=== PATIENT | female | born 1940 | race Caucasian/White ===

== ENCOUNTER → 2017-12-27 07:55 | Outpatient (CLI) | payer MEDICARE, OTHER, SELFPAY ==
[2017-12-27 10:49] LABS: Color, Urine Yellow (Yellow); Glucose, Dipstick Normal (Normal); Ketone-Dipstick Negative (Negative); Leukocyte Esterase-Dipstick 25 /ul (Negative); Nitrite-Dipstick Negative (Negative); Occult Blood-Urine 10 /ul (Negative); Protein-Dipstick Negative (Negative); Specific Gravity, Urine 1.015 (1.002-1.030); Urine Bilirubin Dipstick Negative (Negative); Urine Clarity Clear (Clear); Urine Urobilinogen Normal (Normal)
[2017-12-27 11:11] LABS: Protein, Urine (Random) 8.9 mg/dL (<11.9); Protein:Creat Ratio 157 mg/g CRE (0-200)
[2017-12-28 11:14] LABS: Complement C3 137 mg/dL (82-167)
[2017-12-28 14:08] LABS: Anti-Centromere B Ab <0.2 AI (0.0-0.9); Anti-Jo <0.2 AI (0.0-0.9); Anti-Scleroderma-70 AB <0.2 AI (0.0-0.9); RNP Ab <0.2 AI (0.0-0.9); SJOGREN'S Anti-SS-A test < 0.2 AI (0.0-0.9); SJOGREN'S Anti-SS-B test < 0.2 AI (0.0-0.9); Smith Ab <0.2 AI (0.0-0.9)
[2017-12-29 10:32] LABS: ANTINUCLEAR ANTIBODIES DIRECT Negative (Negative); Anti-dsDNA Ab <1 IU/mL (0-9)
== END ==
PROVIDERS: Family Provider Internal Medicine Geriatric Medicine; PCP Internal Medicine Geriatric Medicine; Visit Provider Internal Medicine Rheumatology
DX: M06.4 Inflammatory polyarthropathy (principal); M79.7 Fibromyalgia; M35.00 Sjogren syndrome, unspecified; M15.9 Polyosteoarthritis, unspecified; M48.062 Spinal stenosis, lumbar region with neurogenic claudication
CPT/HCPCS: 36415; 81002; 82570; 84156; 86038; 86160; 86225; 86235

== ENCOUNTER → 2018-02-08 08:51 | Outpatient (CLI) | payer MEDICARE, OTHER, SELFPAY ==
--- NOTE | 2018-02-08 11:57 | NEURO ---
NCS and/or EMG Patient Report Ordering Doctor: Mohamud Braga DATE OF SERVICE: 02/08/18 Rama Abarca is a 77-year-old female who presents for electrodiagnostic testing of the lower limbs. She has chief complaint of numbness and tingling in the left leg. She has intermittent symptoms in the right leg. She reports having had a back surgery in September 2017. Electrodiagnostic findings: on nerve conduction study, peroneal motor nerve demonstrates normal distal latency, amplitude and conduction velocity bilaterally. Normal tibial motor response bilaterally. H reflexes are slightly prolonged bilaterally. Prolonged left peroneal F wave. Borderline prolonged sural latency bilaterally. On needle EMG, all muscles tested in the lower limbs show no evidence of denervation with normal motor unit action potentials. Electrodiagnostic impression: This is an essentially normal study in the lower limbs. There is no electrodiagnostic evidence for peripheral polyneuropathy. There is no electrodiagnostic evidence for lumbosacral radiculopathy. The borderline slowing of the sural nerve is likely not of major clinical consequence. If there are any further questions, please not hesitate to contact me
== END ==
PROVIDERS: Family Provider Internal Medicine Geriatric Medicine; PCP Internal Medicine Geriatric Medicine; Visit Provider Orthopaedic Surgery Orthopaedic Surgery of the Spine
DX: M47.26 Other spondylosis with radiculopathy, lumbar region (principal); M51.36 Other intervertebral disc degeneration, lumbar region; Z98.890 Other specified postprocedural states
CPT/HCPCS: 95886; 95912

== ENCOUNTER → 2018-03-16 11:51 | Outpatient (CLI) | payer MEDICARE, OTHER, SELFPAY ==
[2018-03-16 13:48] LABS: Absolute Lymphocyte Count 1.67 X10^3/ul (0.83-4.51); Absolute Neutrophil Count 3.6 X10^3/uL (2.0-7.7); Basophil# 0.03 X10^3/uL; Basophil% 0.5 % (0-1); Eosinophil# 0.22 X10^3/uL; Eosinophils% 3.5 % (0-5); Hematocrit 39.7 % (37-47); Lymphocyte # 1.67 X10^3/ul (4.0); Lymphocyte % 26.6 % (19-41); Mean Corp Hgb Conc 32.7 g/gl (32-36); Mean Corpuscular Volume 91.7 fL (81-99); Mean Platelet Vol. 10.1 fl (6.2-12.0); Monocyte# 0.72 X10^3/uL; Monocyte% 11.5 % (0-10); Neutrophil # 3.64 X10^3/uL (2.7-7.7); Neutrophil % 57.9 % (47-70); POSITIVE COUNT NO; POSITIVE DIFFERENTIAL NO; POSITIVE MORPHOLOGY NO; Platelet Count 315 K/mm3 (150-450); RBC Distribution Width CV 14.6 % (11.6-14.6); RBC Distribution Width SD 47.8 fl (35.1-43.9); Red Blood Count 4.33 M/mm3 (4.2-5.4); White Blood Count 6.3 K/mm3 (4.4-11.0)
[2018-03-16 14:02] LABS: ALB/GLOB Ratio 1.2 RATIO (0.9-2.4); AST(SGOT) 28 U/L (15-37); Alanine Aminotransfer ALT/SGPT 43 U/L (13-56); Albumin, Serum 4.1 g/dL (3.2-5.0); Alkaline Phosphatase 110 U/L (45-117); Anion Gap 8 (5-15); BUN 18 mg/dL (7-18); BUN/Creat Ratio 20.8 RATIO (10-20); Calcium,Total 9.1 mg/dL (8.5-10.1); Chloride 103 mmol/L (98-107); Creatinine, Serum 0.86 mg/dL (0.55-1.02); EST Glomerular Filtration Rate 68 mL/min (>60); Est Glom Filt Rate - Afr Amer 82 mL/min (>60); Globulin 3.3 g/dL (2.2-4.2); Glucose 88 mg/dL (74-106); Potassium 4.2 mmol/L (3.5-5.1); Protein, Total 7.4 g/dL (6.4-8.2); Sodium Level 139 mmol/L (136-145)
== END ==
PROVIDERS: Family Provider Internal Medicine Geriatric Medicine; PCP Internal Medicine Geriatric Medicine; Visit Provider Internal Medicine Rheumatology
DX: M06.4 Inflammatory polyarthropathy (principal); R76.8 Other specified abnormal immunological findings in serum; M79.7 Fibromyalgia; M35.00 Sjogren syndrome, unspecified; M15.9 Polyosteoarthritis, unspecified; M48.062 Spinal stenosis, lumbar region with neurogenic claudication
CPT/HCPCS: 36415; 80053; 85025

== ENCOUNTER → 2018-05-30 09:20 | Outpatient (CLI) | payer MEDICARE, OTHER, SELFPAY ==
[2018-05-30 12:11] LABS: Absolute Lymphocyte Count 1.09 X10^3/ul (0.83-4.51); Basophil# 0.02 X10^3/uL; Basophil% 0.4 % (0-1); Eosinophil# 0.28 X10^3/uL; Eosinophils% 5.8 % (0-5); Hematocrit 39.5 % (37-47); Hemoglobin 12.3 g/dl (12.0-15.0); Lymphocyte # 1.09 X10^3/ul (4.0); Lymphocyte % 22.6 % (19-41); Mean Corp Hgb Conc 31.1 g/gl (32-36); Mean Corpuscular Hgb 29.3 pg (27.0-32.0); Mean Platelet Vol. 9.9 fl (6.2-12.0); Monocyte# 0.44 X10^3/uL; Monocyte% 9.1 % (0-10); Neutrophil # 2.99 X10^3/uL (2.7-7.7); Neutrophil % 61.9 % (47-70); Platelet Count 315 K/mm3 (150-450); RBC Distribution Width CV 14.8 % (11.6-14.6); RBC Distribution Width SD 50.2 fl (35.1-43.9); White Blood Count 4.8 K/mm3 (4.4-11.0)
[2018-05-30 12:23] LABS: POSITIVE COUNT NO; POSITIVE DIFFERENTIAL NO; POSITIVE MORPHOLOGY NO
[2018-05-30 12:26] LABS: ALB/GLOB Ratio 1.3 RATIO (0.9-2.4); AST(SGOT) 20 U/L (15-37); Alanine Aminotransfer ALT/SGPT 33 U/L (13-56); Albumin, Serum 3.8 g/dL (3.2-5.0); Alkaline Phosphatase 102 U/L (45-117); Anion Gap 10 (5-15); BUN 22 mg/dL (7-18); BUN/Creat Ratio 22.7 RATIO (10-20); Calcium,Total 9.1 mg/dL (8.5-10.1); Chloride 105 mmol/L (98-107); Creatinine, Serum 0.97 mg/dL (0.55-1.02); EST Glomerular Filtration Rate 59 mL/min (>60); Est Glom Filt Rate - Afr Amer 72 mL/min (>60); Glucose 110 mg/dL (74-106); Potassium 4.2 mmol/L (3.5-5.1); Protein, Total 6.8 g/dL (6.4-8.2); Sodium Level 142 mmol/L (136-145)
== END ==
PROVIDERS: Family Provider Internal Medicine Geriatric Medicine; PCP Internal Medicine Geriatric Medicine; Visit Provider Internal Medicine Rheumatology
DX: M06.4 Inflammatory polyarthropathy (principal); R76.8 Other specified abnormal immunological findings in serum; M79.7 Fibromyalgia; M25.00 Hemarthrosis, unspecified joint; M15.9 Polyosteoarthritis, unspecified; M48.062 Spinal stenosis, lumbar region with neurogenic claudication; G25.81 Restless legs syndrome; K21.9 Gastro-esophageal reflux disease without esophagitis; F32.89 Other specified depressive episodes
CPT/HCPCS: 36415; 80053; 85025

== ENCOUNTER 2019-06-15 07:41 | Day surgery (SDC) | payer MEDICARE, OTHER, SELFPAY ==
[2019-06-15] VITALS (7 sets, daily range): BP systolic 99–151; BP diastolic 60–80; PULSE 54–68; RESP 16–18; TEMP 36.3–36.4; O2SAT 97–100; BMI 31.4
[2019-06-15] MEDS: Lactated Ringers 1,000 ML 100 ML IV (08:24)
--- NOTE | 2019-06-15 09:00 | RAD_ITS ---
STUDY: X-RAY - LUMBAR SPINE REASON FOR EXAM: Female, 78 years old. Spinal stimulator placement TECHNIQUE: 4 view(s) of the lumbar spine were obtained. COMPARISON: None FINDINGS: 531 seconds of fluoroscopy of the thoracic spine was utilized upper ureter and 3-D images are submitted for interpretation. RAD/Lumbar Spine 2 or 3 Views IMPRESSION: Fluoroscopy during surgery. Electronically Signed: Eugenio Holland MD at 14:07 EDT Tel , Service support ,
[2019-06-15] MEDS: Cefazolin 2 GM in 0.9% Normal Saline 100 ML IV (09:20)
[2019-06-15] MEDS: Bupivacaine Mpf 0.5% 30 ML VIAL (09:46)
--- NOTE | 2019-06-15 11:41 | PCM.OPRPT ---
Problem List (1) Failed back syndrome of lumbar spine Status: Acute (2) Failed back syndrome of lumbar spine Status: Acute (3) Postlaminectomy syndrome, not elsewhere classified Status: Acute (4) Postlaminectomy syndrome, not elsewhere classified Status: Acute (5) Low back pain Status: Acute (6) Low back pain Status: Acute (7) Other intervertebral disc degeneration, lumbar region Status: Acute (8) Other intervertebral disc degeneration, lumbar region Status: Acute Report of Operation Date of Procedure: 06/15/19 Pre-Operative Diagnosis: Lumbar postlaminectomy syndrome, lower back pain, degenerative disc disease, lumbar radiculopathy, 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 IPG placement/Abbot /[place], rechargeable battery in the left gluteal region. Permanent implant of 2x 8 contact lead Abbbot system in the posterior epidural space at the T8-T9. Position fluoroscopy 1 hour. Complex programming 1 hour Description of Surgical Findings:: After informed consent about the procedure, review prior care for the presenting complaint of lower back pain and lower extremity radicular pain. Patient had successful spinal cord stimulator trial and decision was made to proceed with a permanent implant based on patient response to the trial period. Patient taken to OR [6], placed to the prone position pressure points were padded appropriate monitoring per anesthesia team were applied patient was safe to administer anesthesia per anesthesia team. Anesthesia provided is general anesthesia/monitored anesthesia care with no intubation. After appropriate fluoroscopy guidance and marking of the targeted area to the entry at the level of L2-3, appropriate draping was applied, sterile preparation using DuraPrep to both incision in the mid lumbar spinal area at the level of the L2-3, and of the right gluteal region for the IPG placement. Incision started , used 25-gauge needle for skin infiltration with local anesthesia using preservative-free lidocaine 0.5% mixture was Marcaine 0.25% was 1-200,000 epinephrine. Using #10 blade, made 2.5 inch longer to the incision, longitudinal, at the level of L2-L3 at the midline using #10 blade. Incision was completed using cauterization at level 30?, coagulation at levels 30? to ensure no bleeding spots. After proper exploration of the area, used a 14-gauge curved tip Touhy needle to access at 45? angle to the posterior epidural space at the entry point L1 to at midline confirmed with AP and lateral fluoroscopy and [id number] technique using preservative-free normal saline and glass syringes. I have placed to needles at the L1-2 posterior epidural space and noted aspiration was negative for CSF and blood. I passed TWO # 8 contacts leads, [Fitnet System], they both passed parralel to each other through the 2 needles in the posterior epidural space confirmed with lateral fluoroscopy and AP fluoroscopy at the midline until placed smoothly at the posterior epidural space with the tip of the lead at the top of T8 vertebrae. Using [Boxfish] embedded software programmer I have placed the embedded software programmer on the leads insured good impedance on the reader and patient was awakened throughout the placement of the wires and placement of the leads, given patient 45-60 minutes complex programming for the different painful target areas until the patient verified appropriate coverage over the painful areas in the lower back and both legs using contacts in the middle of both leads. After patient has expressed satisfaction with the placement patient was put back to anesthesia for sedation. I disconnected the embedded software programmer from the leads followed by pulling the 2 needles and the guidewire from the leads under live fluoroscopy and kept placement of the 2 leads at the posterior epidural space at the T8 and T9 as initially placed. At that time we used two anchors to anchor the [address] confirmed with fluoroscopy to ensure the leads stayed in place at each step followed by using 2 silk sutures to anchor the 2 anchors was then leads into the posterior longitudinal ligaments. IPG pocket was performed on the [ right] gluteal region below the belt line after identification was fluoroscopy, 2.5 inch transverse incision was made after local infiltration with lidocaine preservative-free 0.5% and Marcaine quarter percent infiltrated with 10 cc and using incision by #10 blade made the pocket to accommodate the rechargeable battery at place. I used tunneling device between the IPG pocket and the midline lumbar incision to tunnel the 2 leads to the IPG followed by anchoring the 2 leads into the battery and using hex wrench to tighten the placement, this was confirmed with another complex programming and impedance was completed to be appropriate at all contacts. After ensuring good placement of the system, I have used to silk suture to tighten the battery in place. We have used sterile irrigation to irrigate both pockets, followed by closure with the deep layer with 2-0 Vicryl and closure of the superficial layer with subcuticular closure with Vicryl sutures. We applied dressing using Dermabond, Steri-Strips at both insert incisions followed by covering with transparent draping. Given instruction for postoperative follow-up, also Keflex 500 g every 6 hours for 7 days, also given prescription for Percocet for postoperative pain I have also discussed this patient to follow-up with orthopedic as soon as she could for the right hip issue, also be ordering postprocedure hip x-ray to ensure similar position of prior procedure and to follow-up with orthopedic Patient tolerated the procedure well taken to recovery and prepared to be discharged home once meets anesthesia criteria, patient was given the postoperative instruction and the follow-up procedure including antibiotic coverage instructions. Type of Anesthesia:: MAC Anesthesiologist: Bryson Garcia Special Medications: Bupivacaine and lidocaine local anesthetics. Antibiotic received per anesthesia Specimen's removed: None Estimated Blood Loss (mL): 20 cc Description of Procedure: See above Grafts/Implants Used: Rechargeable battery IPG in the left gluteal region, to permanently - Complications None - Admit VTE Documentation VTE Mechan Device Prophylaxis: Knee High GAGE Hose VTE Pharm Prophylaxis ordered?: Yes
--- NOTE | 2019-06-15 11:53 | PCM.DC ---
- Discharge Diagnoses Current Active Problems: Current Active and Chronic Problems (Last Updated 07/07/18 @ 08:08 by Maty Hwang) Failed back syndrome of lumbar spine (Acute) Failed back syndrome of lumbar spine (Acute) Postlaminectomy syndrome, not elsewhere classified (Acute) Postlaminectomy syndrome, not elsewhere classified (Acute) Low back pain (Acute) Low back pain (Acute) Other intervertebral disc degeneration, lumbar region (Acute) Other intervertebral disc degeneration, lumbar region (Acute) Reason(s) for Visit for Discharge Instructions: Spinal cord stim later implant You will use the following diet at home:: No restrictions Your food should be the consistency of: Regular Discharge Activity: Use Walker May shower in (days): 5 Weight Bearing Status: Partial weight bearing Keep extremity elevated above heart level: Operative Extremity Call your doctor if your incision/area has: Continuous Slow Oozing, Sudden Increased Bleeding, Increased Pain/ Swelling, Increased Redness, Foul Smelling Discharge, Swelling at the incision site Call your doctor if you observe: Fever of 101 or Higher, Coldness, Increased Pain, Numbness or Tingling, Change in Color, Inability to urinate, Inability to have a bowel movement, Shortness of breath, Dizziness, Swelling in the ankles, Increased palpitations (irregular heartbeat), Calf discomfort, Uncontrolled pain Suture Line Care: Avoid Pulling/Pushing, Avoid Pinching/Bending Remove Dressing in (days):: 5 Cleanse incision/area with: Soap & Water Allergies/Adverse Reactions: Allergies morphine Allergy (Verified 06/15/19 07:57) Unknown hallucinations pregabalin [From Lyrica] Allergy (Verified 06/15/19 07:57) Hives Sulfa (Sulfonamide Antibiotics) Allergy (Verified 06/15/19 07:57) Unknown fatigue antidepressants Adverse Reaction (Uncoded 06/15/19 07:57) Other sleepy Medications to take at Discharge aspirin 81 mg chewable tablet 81 mg PO DAILY 07/07/18 atorvastatin 20 mg tablet 20 mg PO QHS 90 Days #90 tab 07/07/18 calcium carbonate 600 mg calcium (1,500 mg) tablet 1,000 mg PO BID tab 07/07/18 cholecalciferol (vitamin D3) 3,000 unit tablet 2,000 unit PO DAILY 07/07/18 cyanocobalamin (vit B-12) 1,000 mcg/mL oral drops 500 mcg PO DAILY 07/07/18 donepezil 10 mg tablet 10 mg PO QHS 90 Days #90 tab 07/07/18 escitalopram 10 mg tablet 5 mg PO QHS 90 Days #135 tab 07/07/18 folic acid 1 mg tablet 800 mcg PO BID 90 Days #180 tab 07/07/18 gabapentin 600 mg tablet 600 mg PO BID 90 Days #270 tab 07/07/18 lutein 6 mg capsule 6 mg PO DAILY 07/07/18 methotrexate sodium 2.5 mg tablet 20 mg PO QWEEK 28 Days #28 tab 07/07/18 multivitamin capsule 1 cap PO DAILY 07/07/18 omeprazole 40 mg capsule,delayed release 40 mg PO DAILY 90 Days #90 cap 07/07/18 pramipexole 0.5 mg tablet 1 tab PO QHS 90 Days #90 tab 07/07/18 vitamin E 200 unit capsule 1,000 unit PO BID 07/07/18 Isosorbide Mononitrate [Imdur] 30 mg PO DAILY 06/08/19 Losartan Potassium [Cozaar] 100 mg PO DAILY 06/08/19 Magnesium Oxide [Magnesium] 1,250 mg PO DAILY 06/08/19 Meloxicam 7.5 mg PO BID 06/08/19 Metoprolol Succinate 25 mg PO DAILY 06/08/19 Mirtazapine 4 mg PO QHS 06/08/19 [place]-3 Fatty Acids [[place]-3] 1,000 mg PO DAILY 06/08/19 Thiamine HCl [Vitamin B-1] 100 mg PO DAILY 06/08/19 Tizanidine HCl [Zanaflex] 4 mg PO QHS 06/08/19 traMADol [Ultram (G)] 50 mg PO Q4H PRN PRN 06/08/19 Primary Care Physician: Beau Franks MD [Primary Care Provider] - Please follow up with your Primary Care Physician in: Instructed patient also to keep calling for the orthopedic/[facility] , Test Results: Test results from this visit will be discussed in further detail at your follow-up appointment, if applicable. Please Follow Up With: Sarah Johns MD
--- NOTE | 2019-06-15 12:28 | NURSING ---
SPINAL CORD STIMULATOR REP AT BEDSIDE, DAUGHTER ALSO AT BEDSIDE TO ASSIST IN RECEIVING INSTRUCTIONS.
--- NOTE | 2019-06-15 13:50 | RAD_ITS ---
STUDY: X-RAY - PELVIS AND RIGHT HIP REASON FOR EXAM: Female, 78 years old. Hip pain TECHNIQUE: 3 views of the pelvis and hip. COMPARISON: None. FINDINGS: There is a non-specific bowel gas pattern. Normal visualized soft tissue structures. Normal bilateral iliac wings, sacroiliac joints and visualized sacrum. Normal bilateral superior and inferior pubic rami. Normal pubic symphysis. Normal bilateral ischial tuberosities. Irregular concavity of the superior aspect of the femoral head worrisome for collapse possibly from avascular necrosis. Correlation with MRI is recommended. Normal acetabulum. Normal hip joint. 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 Electronically Signed: Eugenio Holland MD at 14:08 EDT Tel , Service support ,
== END 2019-06-15 13:36 | disposition home or self-care (01) ==
LOC: SDC 07:43 → AC 07:45
PROVIDERS: Family Provider Family Medicine; PCP Family Medicine; Referring Provider Anesthesiology; Visit Provider Anesthesiology
PROC: (CPT 63685; principal; 2019-06-15 08:45)
DX: M51.16 Intervertebral disc disorders with radiculopathy, lumbar region (principal); M96.1 Postlaminectomy syndrome, not elsewhere classified; M48.062 Spinal stenosis, lumbar region with neurogenic claudication; I10 Essential (primary) hypertension; M19.90 Unspecified osteoarthritis, unspecified site; K21.9 Gastro-esophageal reflux disease without esophagitis; E78.00 Pure hypercholesterolemia, unspecified; F32.9 Major depressive disorder, single episode, unspecified; I25.10 Atherosclerotic heart disease of native coronary artery without angina pectoris; G25.81 Restless legs syndrome; Z95.5 Presence of coronary angioplasty implant and graft; Z87.891 Personal history of nicotine dependence; Z79.82 Long term (current) use of aspirin; Z79.891 Long term (current) use of opiate analgesic; Z79.899 Other long term (current) drug therapy
CPT/HCPCS: 00300; 63685; 95972; 72100; 73502; 76000; C1778; J7120; J3490

== ENCOUNTER → 2020-01-18 | Outpatient (CLI) | payer MEDICARE, OTHER, SELFPAY ==
[2019-06-15 08:06] VITALS: BMI 31.4
--- NOTE | 2020-01-18 13:57 | RAD_ITS ---
STUDY: X-RAY - CERVICAL SPINE REASON FOR EXAM: Female, 79 years old. Cervicalgia -- neck pain, bilateral arm pain TECHNIQUE: 6 view(s) of the cervical spine were obtained including oblique views. COMPARISON: None FINDINGS: Normal anterior atlantoaxial articulation. Normal odontoid process. There is straightening of the normal cervical lordosis. There is multi-level endplate spondylosis. Normal visualized intervertebral neuroforamina. The soft tissue structures are unremarkable. RAD/Cerv Spine 4 or 5 Views IMPRESSION: Multilevel spondylosis and disc space narrowing. Electronically Signed: Ronald Guerrero, at 15:06 EDT , Service support ,
== END | disposition home or self-care (01) ==
LOC: RAD 13:57
PROVIDERS: PCP Family Medicine; Referring Provider Anesthesiology; Visit Provider Anesthesiology
DX: M54.2 Cervicalgia (principal)
CPT/HCPCS: 72050

== ENCOUNTER 2020-04-11 12:00 | Day surgery (SDC) | payer MEDICARE, OTHER, SELFPAY ==
[2019-06-15 08:06] VITALS: BMI 31.4
[2020-04-11 12:36] VITALS: BP 160/64; PULSE 55; RESP 15; TEMP 36.2; O2SAT 98; BMI 28.3
[2020-04-11] MEDS: Lactated Ringers 1,000 ML 100 ML IV (12:59)
--- NOTE | 2020-04-11 13:30 | RAD_ITS ---
STUDY: X-RAY - LUMBAR SPINE REASON FOR EXAM: Female, 79 years old. spinal cord stimulator revision in OR, pain -- dose: 80.26 mGy; 231.3 seconds of pulse fluoro; 2 spots and 1 dose summary TECHNIQUE: 2 view(s) of the lumbar spine were obtained. COMPARISON: None FINDINGS: 2 fluoroscopic images demonstrate 2 thoracic spine stimulators. The exact levels of the stimulator placements cannot be determined on the provided fluorographs. RAD/Lumbar Spine 2 or 3 Views IMPRESSION: As above. Electronically Signed: Salvatore Salazar MD at 19:55 EDT Tel , Service support ,
[2020-04-11] MEDS: Cefazolin 2 GM in 0.9% Normal Saline 100 ML IV (14:12)
[2020-04-11] MEDS: Bupivacaine Mpf 0.5% 30 ML VIAL (15:30)
[2020-04-11] MEDS: 0.9% Normal Saline (Pres. free 10 ML Vial (15:30)
--- NOTE | 2020-04-11 15:55 | DCINST_ITS ---
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 Excessive bending. No twisting. Keep incision dry. Keep it covered. Take antibiotics 7 days, Keflex 500 mg every 6 hours. Apply icing on the incision if painful. Take pain medication as needed for pain Call your doctor if your incision/area has: Continuous Slow Oozing, Sudden Increased Bleeding, Increased Pain/ Swelling, Increased Redness, Foul Smelling Discharge, Swelling at the incision site Call your doctor if you observe: Fever of 101 or Higher, Coldness, Increased Pain, Numbness or Tingling, Change in Color, Inability to have a bowel movement, Shortness of breath, Uncontrolled pain Change Dressing in (Days):: 5 Remove Dressing in (days):: 5 Cleanse incision/area with: Soap & Water, Keep Dressing Clean & Dry Allergies/Adverse Reactions: Allergies morphine Allergy (Verified 04/11/20 12:26) Unknown hallucinations pregabalin [From Lyrica] Allergy (Verified 04/11/20 12:26) Hives Sulfa (Sulfonamide Antibiotics) Allergy (Verified 04/11/20 12:26) Unknown fatigue antidepressants Adverse Reaction (Uncoded 04/11/20 12:26) Other sleepy Medications to take at Discharge aspirin 81 mg chewable tablet 81 mg PO DAILY 07/07/18 atorvastatin 20 mg tablet 20 mg PO QHS 90 Days #90 tab 07/07/18 calcium carbonate 600 mg calcium (1,500 mg) tablet 1,000 mg PO BID tab 07/07/18 cholecalciferol (vitamin D3) 75 mcg (3,000 unit) tablet 2,000 unit PO DAILY 07/07/18 donepezil 10 mg tablet 10 mg PO QHS 90 Days #90 tab 07/07/18 escitalopram oxalate 10 mg tablet 10 mg PO QHS 90 Days #135 tab 07/07/18 folic acid 1 mg tablet 800 mcg PO BID 90 Days #180 tab 07/07/18 gabapentin 600 mg tablet 700 mg PO BID 90 Days #270 tab 07/07/18 lutein 6 mg capsule 6 mg PO DAILY 07/07/18 methotrexate sodium 2.5 mg tablet 8 tab PO QWEEK 28 Days #28 tab 07/07/18 multivitamin 1 cap PO DAILY 07/07/18 omeprazole 40 mg capsule,delayed release 40 mg PO DAILY 90 Days #90 cap 07/07/18 pramipexole 0.5 mg tablet 1 tab PO QHS 90 Days #90 tab 07/07/18 vitamin E 200 unit capsule 1,000 unit PO BID 07/07/18 Isosorbide Mononitrate [Imdur] 30 mg PO DAILY 06/08/19 Losartan Potassium [Cozaar] 100 mg PO DAILY 06/08/19 Magnesium Oxide [Magnesium] 1,250 mg PO DAILY 06/08/19 Metoprolol Succinate 25 mg PO DAILY 06/08/19 [place]-3 Fatty Acids [[place]-3] 1,000 mg PO DAILY 06/08/19 Tizanidine HCl [Zanaflex] 4 mg PO QHS PRN 06/08/19 traMADol [Ultram (G)] 100 mg PO BID 06/08/19 Cyanocobalamin (Vitamin B-12) [Vitamin B-12] 1,000 mcg PO DAILY 04/03/20 Naproxen Sodium [Naproxen Sodium Cr] 500 mg PO BID 04/03/20 Primary Care Physician: Beau Franks MD [Primary Care Provider] - Test Results: Test results from this visit will be discussed in further detail at your follow- up appointment, if applicable. Please Follow Up With: Sarah Johns MD
--- NOTE | 2020-04-11 15:58 | OP.PCM_ITS ---
Problem List (1) Failed back syndrome of lumbar spine Status: Acute (2) Failed back syndrome of lumbar spine Status: Acute (3) Postlaminectomy syndrome, not elsewhere classified Status: Acute (4) Postlaminectomy syndrome, not elsewhere classified Status: Acute (5) Low back pain Status: Acute (6) Low back pain Status: Acute (7) Other intervertebral disc degeneration, lumbar region Status: Acute (8) Other intervertebral disc degeneration, lumbar region Status: Acute Report of Operation Date of Procedure: 04/11/20 Pre-Operative Diagnosis: Lumbar postlaminectomy syndrome. Failed back syndrome. Spinal cord stimulator system failure/lead failure Post-Operative Diagnosis: Same Surgery/Procedure Performed:: 1. Spinal cord stimulator revision. 2. additional fluoroscopy 1 hour. 3. Complex programming intraoperatively 1 hour. 4. Exploration of spine with meter battery and spinal cord stimulator leads. 5. Impedance to check intraoperative. 6. Revision of the left-sided lead, removal and implant new leads in place and connecting to the the old battery. 7. Right-sided lead impedance are checked, left in place as is normally working Description of Surgical Findings:: [facility] spinal cord stimulator system in place was used during the procedure After informed consent about the procedure, review prior care for the presenting complaint of lower back pain and lower extremity radicular pain. Patient had successful spinal cord stimulator permanent implant which was working. Patient had hip surgery after that surgery she has returned to the office with lead failure in the system is not working not able to provide her with a coverage. After multiple successful check, we found out that 1 of the leads has high impedance not working, which is a left-sided lead. After informed consent, spoke with the medical regimen which was not covering, spinal cord stimulator revision decided to take place and be the best option to proceed. Patient taken to OR [1], placed to the prone position pressure points were padded appropriate monitoring per anesthesia team were applied patient was safe to administer anesthesia per anesthesia team. Anesthesia provided is general anesthesia/monitored anesthesia care with no intubation. After appropriate fluoroscopy guidance and marking of the targeted area to the entry at the level of L2-3, appropriate draping was applied, sterile preparation using DuraPrep to both incision in the mid lumbar spinal area at the level of the L2-3, and of the right gluteal region for the IPG placement. Incision started , used 25-gauge needle for skin infiltration with local anesthesia using preservative-free lidocaine 0.5% mixture was Marcaine 0.25% was 1-200,000 epinephrine. Using #10 blade, made 2.5 inch longer to the incision over the IPG site. We had access to the battery, first explored over the old battery, impedance check was both leads identified that the left-sided lead has high impedance however the right-sided lead was normal. Cross impedance was also done to try to rule out the battery, step check noted that the battery is intact, the right- sided lead is intact, but the left lead is failure. We have access to the level of L2-L3 at the midline using #10 blade. Incision was completed using cauterization at level 25, coagulation at levels 25 to ensure no bleeding spots. After proper exploration of the area, identified the field lead on the left side, pulled out carefully by left the right side in place. Used a 14-gauge curved tip Touhy needle to access at 45? angle to the posterior epidural space at the entry point L1 to at midline confirmed with AP and lateral fluoroscopy and [id number] technique using preservative-free normal saline and glass syringes. I have placed to needles at the L1-2 posterior epidural space and noted aspiration was negative for CSF and blood. I passed 1 sided 8 contacts lead, [facility] lead system, placed the left-sided lead and passed to the old position, impedance check and complex programming showed lower coverage however we have to push the lead up to the level higher to the top of T7. However the right-sided lead left in place at the top of T8. Patient was awakened, complex programming patient has no rib pain, no abdominal pain. It was given patient 45 minutes complex programming for the different painful target areas until the patient verified appropriate coverage over the painful areas in the lower back and both legs using contacts in the middle of both leads. After patient has expressed satisfaction with the placement patient was put back to anesthesia for sedation. We have checked both leads, attached the battery and both were working in fine condition. I disconnected the programmer developer from the leads followed by pulling the 2 needles and the guidewire from the leads under live fluoroscopy and kept placement of the 2 leads at the posterior epidural space at the T8 and T9 as initially placed. At that time we used two anchors to anchor the [address] confirmed with fluoroscopy to ensure the leads stayed in place at each step followed by using 2 silk sutures to anchor the 2 anchors was then leads into the posterior longitudinal ligaments. IPG pocket was performed on the left gluteal region below the belt line after identification was fluoroscopy, 2.5 inch transverse incision was made after local infiltration with lidocaine preservative-free 0.5% and Marcaine quarter percent infiltrated with 10 cc and using incision by #10 blade made the pocket to accommodate the rechargeable battery at place. I used tunneling device between the IPG pocket and the midline lumbar incision to tunnel the left-sided leads to the IPG followed by anchoring the left-sided leads into the battery and using hex wrench to tighten the placement, this was confirmed with another complex programming and impedance was completed to be appropriate at all contacts. The right-sided lead was left in place early, was not taken out of the pocket and left in place. Impedance check and complex programming was confirmed at the end of the procedu re, patient has appropriate coverage to the painful area across the back, left leg, and the right upper leg. After ensuring good placement of the system, I have used to silk suture to tighten the battery in place. We have used sterile irrigation to irrigate both pockets, followed by closure with the deep layer with 2-0 Vicryl and closure of the superficial layer with subcuticular closure with Vicryl sutures. We applied dressing using Dermabond, Steri-Strips at both insert incisions followed by covering with transparent draping. She has an intact neurological function at her baseline after the procedure Patient tolerated the procedure well taken to recovery and prepared to be discharged home once meets anesthesia criteria, patient was given the postoperative instruction and the follow-up procedure including antibiotic coverage instructions. Type of Anesthesia:: General
[2020-04-11 16:30] VITALS: BP 154/79; BP 160/64; PULSE 60; RESP 16; TEMP 36.3; O2SAT 97
[2020-04-11 16:35] VITALS: BP 153/68; BP 160/64; PULSE 60; RESP 16; O2SAT 95
[2020-04-11 16:40] VITALS: BP 160/64; BP 160/90; PULSE 58; RESP 16; O2SAT 97
[2020-04-11 16:45] VITALS: BP 136/76; BP 160/64; PULSE 60; RESP 16; TEMP 36.5; O2SAT 96
[2020-04-11 17:37] VITALS: BP 148/67; BP 160/64; PULSE 61; RESP 18; TEMP 36.4; O2SAT 96
== END 2020-04-11 17:45 | disposition home or self-care (01) ==
LOC: SDC 12:00 → AC 12:06
PROVIDERS: Anesthesiology; PCP Family Medicine; Referring Provider Anesthesiology; Visit Provider Anesthesiology
PROC: (CPT 63685; principal; 2020-04-11 13:15)
DX: T85.192A Other mechanical complication of implanted electronic neurostimulator of spinal cord electrode (lead), initial encounter (principal); M96.1 Postlaminectomy syndrome, not elsewhere classified; M51.16 Intervertebral disc disorders with radiculopathy, lumbar region; M48.062 Spinal stenosis, lumbar region with neurogenic claudication; M47.817 Spondylosis without myelopathy or radiculopathy, lumbosacral region; M47.816 Spondylosis without myelopathy or radiculopathy, lumbar region; I10 Essential (primary) hypertension; G47.30 Sleep apnea, unspecified; G25.81 Restless legs syndrome; K21.9 Gastro-esophageal reflux disease without esophagitis; E78.00 Pure hypercholesterolemia, unspecified; F32.9 Major depressive disorder, single episode, unspecified; Z11.59 Encounter for screening for other viral diseases; Z79.82 Long term (current) use of aspirin; Z79.891 Long term (current) use of opiate analgesic; Z79.899 Other long term (current) drug therapy; Z95.5 Presence of coronary angioplasty implant and graft; Z87.891 Personal history of nicotine dependence
CPT/HCPCS: 63663; 95972; 72100; 76000; 87635; C1778; G2023; J7120; J3490; U0003

== ENCOUNTER 2021-12-30 10:51 | Outpatient (CLI) | payer MEDICARE, OTHER, SELFPAY ==
[2021-12-30 13:10] LABS: Amphetamine Urine VISTA NEGATIVE (<1000 ng/mL); Barbiturate Urine VISTA NEGATIVE (< 200 ng/mL); Benzodiazepine Urine VISTA NEGATIVE (< 200 ng/mL); Cocaine Urine VISTA NEGATIVE (< 300 ng/mL); Ecstacy Urine VISTA NEGATIVE (< 500 ng/mL); Methadone Urine VISTA NEGATIVE (< 300 ng/mL); PCP Urine VISTA NEGATIVE (< 25 ng/mL); THC Urine VISTA NEGATIVE (< 50 ng/mL); Vista UDS pH Range 5
== END 2021-12-30 23:59 | disposition home or self-care (01) ==
PROVIDERS: Referring Provider Anesthesiology Pain Medicine; Visit Provider Anesthesiology Pain Medicine
DX: F11.20 Opioid dependence, uncomplicated (principal)
CPT/HCPCS: 80307

== ENCOUNTER → 2022-04-27 | Outpatient (CLI) | payer MEDICARE, OTHER, SELFPAY ==
--- NOTE | 2022-04-27 11:24 | RAD_ITS ---
STUDY: X-RAY - RIGHT KNEE REASON FOR EXAM: Chronic right knee pain. TECHNIQUE: 2 view(s) of the knee. COMPARISON: None. FINDINGS: Normal visualized distal femur. Normal visualized proximal tibia and fibula. Normal proximal tibiofibular articulation. There is severe joint space narrowing of the medial femorotibial compartment. Normal lateral femorotibial compartment. Normal patellofemoral articulation. There is a small joint effusion. RAD/Knee 1 or 2 Views IMPRESSION: Arthrosis of the medial femorotibial compartment. Small joint effusion. Electronically Signed: Quirino Perera MD at 13:16 EDT ,
== END | disposition home or self-care (01) ==
LOC: RAD 11:19
PROVIDERS: Visit Provider Anesthesiology Pain Medicine
DX: M17.11 Unilateral primary osteoarthritis, right knee (principal)
CPT/HCPCS: 73560

== ENCOUNTER → 2022-12-21 | Outpatient (CLI) | payer MEDICARE, SELFPAY ==
[2022-12-21 11:26] LABS: Amphetamine Urine VISTA NEGATIVE (<1000 ng/mL); Barbiturate Urine VISTA NEGATIVE (< 200 ng/mL); Benzodiazepine Urine VISTA NEGATIVE (< 200 ng/mL); Cocaine Urine VISTA NEGATIVE (< 300 ng/mL); Ecstacy Urine VISTA NEGATIVE (< 500 ng/mL); Methadone Urine VISTA NEGATIVE (< 300 ng/mL); PCP Urine VISTA NEGATIVE (< 25 ng/mL); THC Urine VISTA NEGATIVE (< 50 ng/mL); Vista UDS pH Range 5
== END | disposition home or self-care (01) ==
LOC: LAB 10:23
PROVIDERS: PCP Internal Medicine; Referring Provider Anesthesiology Pain Medicine; Visit Provider Anesthesiology Pain Medicine
DX: F11.20 Opioid dependence, uncomplicated (principal)
CPT/HCPCS: 80307